=== PATIENT | male | born 1985 | race African-American/Black ===

== ENCOUNTER 2021-04-13 11:11 | Emergency (ER) | payer OTHER ==
[~2021-04-13] VITALS: Ht 175.3 cm; Wt 86.9 kg
[2021-04-13] MEDS ORDERED: DIAZEPAM 2 MG TABLET PO ONE (11:30)
[2021-04-13] MEDS ORDERED: KETOROLAC 60MG/2ML VIAL IM ONE (11:30)
[2021-04-13] MEDS ORDERED: PREDNISONE 20MG TABLET PO ONE (11:30)
[2021-04-13 11:55] VITALS: BP 166/79
[2021-04-13] MEDS ORDERED: NAPR500T7 MT (12:31)
[2021-04-13] MEDS ORDERED: P20 MT (12:31)
[2021-04-13] MEDS ORDERED: CYCL10TA7 MT (12:31)
== END 2021-04-13 12:40 | disposition home or self-care (01) ==
LOC: ER 11:11
DX: M54.59 Other low back pain (principal)
CPT/HCPCS: 96372; 99283; J1885; J7512